=== PATIENT | male | born 1960 ===

== ENCOUNTER 2021-11-28 07:07 | Day surgery (SDC) | payer OTHER | END 2021-11-28 11:55 | disposition home or self-care (01) | LOC: AMB-ENDOS 07:07 | PROVIDERS: ATTEND Surgery | DX: K57.30 Diverticulosis of large intestine without perforation or abscess without bleeding (principal); K64.4 Residual hemorrhoidal skin tags ==

== ENCOUNTER → 2022-01-01 08:00 | Outpatient (CLI) | payer OTHER ==
[~2022-01-01] VITALS: Ht 177.8 cm; Wt 117.9 kg
[~2022-01-01 08:00] MED LIST: ELIQUIS5 MG PO; HUMULIN N100 UNIT/2; HUMULIN R100 UNIT/1 SUBCUTANEO; LEVO-T75 MCG PO; LIPITOR40 MG PO; METFORMIN HCL1000 M2 PO; NEURONTIN800 MG PO; PRILOSEC OTC20 MG PO; TOPROL XL100 M1 PO
== END | disposition home or self-care (01) ==
LOC: LAB 08:00 → EDSTATUS 01-03 09:45 → SURH 01-03 09:45
PROVIDERS: ATTEND Surgery
DX: Z03.818 Encounter for observation for suspected exposure to other biological agents ruled out (principal)

== ENCOUNTER 2022-01-07 09:36 | Outpatient (CLI) | payer OTHER | END 2022-01-07 09:45 | disposition home or self-care (01) | LOC: NUCLEAR 09:36 | PROVIDERS: ATTEND Internal Medicine Geriatric Medicine | DX: Z86.718 Personal history of other venous thrombosis and embolism (principal) ==

== ENCOUNTER 2022-03-03 10:45 | Inpatient (IN) | payer OTHER ==
[~2022-03-03] VITALS: Ht 177.8 cm; Wt 108.9 kg
[2022-03-03] MEDS ORDERED: HUMULIN N100 UNIT/2 (14:37)
[2022-03-10] MEDS ORDERED: PERCOCET 5-3251 EACH PO (13:22)
[2022-03-10] MEDS ORDERED: INTESTINEX680 M1 PO (13:22)
== END 2022-03-10 16:13 | disposition home or self-care (01) | DRG 331 ==
LOC: SURH 03-07 05:24 → O/R 03-07 05:24 → SURH 03-07 09:45
PROVIDERS: ADMIT Surgery; ATTEND Surgery
PROC: 0DTF4ZZ Resection of Right Large Intestine, Percutaneous Endoscopic Approach (ICD-10-PCS; 2022-03-07)
PROC: 07BD4ZZ Excision of Aortic Lymphatic, Percutaneous Endoscopic Approach (ICD-10-PCS; 2022-03-07)
PROC: 07BB4ZZ Excision of Mesenteric Lymphatic, Percutaneous Endoscopic Approach (ICD-10-PCS; 2022-03-07)
PROC: 0DBU4ZZ Excision of Omentum, Percutaneous Endoscopic Approach (ICD-10-PCS; 2022-03-07)
PROC: 0DBL4ZZ Excision of Transverse Colon, Percutaneous Endoscopic Approach (ICD-10-PCS; principal; 2022-03-07 09:45)
DX: D12.3 Benign neoplasm of transverse colon (principal); D17.79 Benign lipomatous neoplasm of other sites; K57.30 Diverticulosis of large intestine without perforation or abscess without bleeding; K64.8 Other hemorrhoids; Z86.010 Personal history of colon polyps